=== PATIENT | female | born 1935 | race Asian ===

== ENCOUNTER → 2018-07-23 | Outpatient (CLI) | payer OTHER ==
[~2018-07-23] MED LIST: CALCIUM 500 +1 EAC5; IBUPROFEN 600600 M1 PO; PRILOSEC 20 MG20 MG PO; TOPROL XL25 MG PO
== END ==
LOC: RAD 08:22
DX: Z12.31 Encounter for screening mammogram for malignant neoplasm of breast (principal)

== ENCOUNTER → 2018-07-30 | Outpatient (CLI) | payer OTHER | LOC: RAD 00:32 | DX: N63.10 Unspecified lump in the right breast, unspecified quadrant (principal); R92.2 Inconclusive mammogram ==

== ENCOUNTER 2019-01-02 05:41 | Emergency (ER) | payer OTHER ==
[~2019-01-02] VITALS: Ht 149.9 cm; Wt 81.7 kg
[2019-01-02] MEDS ORDERED: TYLENOL PM EX-1 EACH PO (06:03)
[2019-01-02 06:18] LABS: BASOPHILS 1.3 % (0.0-2.0); HEMATOCRIT 43.7 % (37.0-47.0); HEMOGLOBIN 14.8 gm/dL (12.0-15.0); LYMPHOCYTES 49.3 % (24.0-44.0); MCH 29.7 pg (26.0-34.0); MCHC 33.9 g/dL (28.0-37.0); MCV 87.6 fL (80.0-100.0); MONOCYTES 8.2 % (1.0-8.0); PLATELET COUNT 173 thou/uL (150-400); POLYS 40.2 % (36.0-66.0); RBC 4.99 mil/uL (4.20-5.00); RDW 13.8 % (10.5-14.5); WBC 7.5 thou/uL (4.0-11.0)
[2019-01-02 06:24] LABS: ANION GAP 10 mmol/L (7-16); BUN 11 mg/dL (7-18); CALCIUM 9.5 mg/dL (8.5-10.1); CHLORIDE 107 mmol/L (98-107); CO2 26 mmol/L (21-32); GLUCOSE 120 mg/dL (74-106); POTASSIUM 4.1 mmol/L (3.5-5.1); SODIUM 143 mmol/L (136-145)
[2019-01-02 06:33] LABS: ALBUMIN 3.4 g/dL (3.4-5.0); DIRECT BILIRUBIN < 0.1 mg/dL (<0.1-0.3); LIPASE 167 U/L (73-393); SGOT 80 U/L (15-37); SGPT 83 U/L (30-65); TOTAL BILIRUBIN 0.4 mg/dL (<0.1-1.0); TOTAL PROTEIN 7.7 g/dL (6.4-8.2); TROPONIN-I <0.06 ng/mL (<0.06)
[2019-01-02 07:37] VITALS: BP 132/62
--- NOTE | 2019-01-02 08:47 | EKG ---
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 : 1935 Requested By: Taylor Orantes Order Number: [id number] MD: Kenny Lam Measurements Intervals [place] Rate: 67 P: 23 WY: 166 QRS: 30 QRSD: 92 T: 45 QT: 389 QTc: 411 Interpretive Statements Sinus rhythm Probable early repolarization Compared to ECG 11/07/2015 18:40:03 No significant change was found Electronically Signed On 01-02-2019 8:47:04 CDT by Kenny Lam [email or web address] ��������������������������������������������� <ELECTRONICALLY SIGNED> ���������������������������������������� By: Kenny Lam MD, [facility] ��������������������������������������������� 01/02/19 0847 [id number] [id number] Kenny Lam MD, FACC /EPI
== END 2019-01-02 07:38 | disposition home or self-care (01) ==
LOC: ER 05:41
PROVIDERS: Emergency Medicine
DX: R07.89 Other chest pain (principal); I10 Essential (primary) hypertension; K21.9 Gastro-esophageal reflux disease without esophagitis; Z90.710 Acquired absence of both cervix and uterus; Z87.891 Personal history of nicotine dependence

== ENCOUNTER → 2019-02-04 | Outpatient (CLI) | payer OTHER ==
[~2019-02-04] MED LIST changes: +TYLENOL PM EX-1 EACH PO
== END ==
LOC: RAD 01:58
DX: R92.8 Other abnormal and inconclusive findings on diagnostic imaging of breast (principal)

== ENCOUNTER → 2019-07-18 | Outpatient (CLI) | payer OTHER ==
[~2019-07-18] MED LIST changes: +NORCO 5-325 TA1 EAC1 PO; +VALACYCLOVIR1000 MG PO
== END ==
LOC: RAD 01:53
DX: Z12.31 Encounter for screening mammogram for malignant neoplasm of breast (principal)

== ENCOUNTER 2019-08-20 15:25 | Emergency (ER) | payer OTHER ==
[~2019-08-20] VITALS: Ht 149.9 cm; Wt 99.2 kg
[~2019-08-20 15:25] MED LIST changes: -NORCO 5-325 TA1 EAC1 PO; -VALACYCLOVIR1000 MG PO
[2019-08-20] MEDS ORDERED: VALACYCLOVIR1000 MG PO (15:42)
[2019-08-20] MEDS ORDERED: NORCO 5-325 TA1 EAC1 PO (16:00)
[2019-08-20 16:24] VITALS: BP 138/58
== END 2019-08-20 17:00 | disposition home or self-care (01) ==
LOC: ER 15:25
DX: B02.9 Zoster without complications (principal); I10 Essential (primary) hypertension; K21.9 Gastro-esophageal reflux disease without esophagitis; Z90.710 Acquired absence of both cervix and uterus; Z87.891 Personal history of nicotine dependence

== ENCOUNTER → 2020-02-05 | Outpatient (CLI) | payer OTHER ==
[~2020-02-05] MED LIST changes: +NORCO 5-325 TA1 EAC1 PO; +VALACYCLOVIR1000 MG PO
== END ==
LOC: RAD 14:40
DX: M54.41 Lumbago with sciatica, right side (principal)

== ENCOUNTER → 2020-02-16 | Outpatient (CLI) | payer OTHER | LOC: MRI 09:47 | DX: M51.16 Intervertebral disc disorders with radiculopathy, lumbar region (principal); M48.07 Spinal stenosis, lumbosacral region ==

== ENCOUNTER → 2020-03-24 | Outpatient (CLI) | payer OTHER | LOC: SJCVCIMAG 07:45 | PROVIDERS: ATTEND Internal Medicine | DX: I08.1 Rheumatic disorders of both mitral and tricuspid valves (principal); I11.9 Hypertensive heart disease without heart failure; R60.0 Localized edema; E78.5 Hyperlipidemia, unspecified; M19.90 Unspecified osteoarthritis, unspecified site; Z87.891 Personal history of nicotine dependence ==

== ENCOUNTER → 2020-03-31 | Outpatient (CLI) | payer OTHER ==
[~2020-03-31] VITALS: Ht 149.9 cm; Wt 85.3 kg
[2020-03-31 08:49] VITALS: BP 155/69
--- NOTE | 2020-03-31 09:10 | NUR ---
Pain Clinic Assessment: 1. 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 Height: 4 ft. 11 in. 149.9 cm. Weight: 188.0 lb. oz. 85.276 kg. Patient's BMI: 38.0 3. Vital Signs: BP: 155/69 Pulse: 60 Resp: 16 Temp: 02 Sat: 97 ECG Mon: 4. Pain Intensity: 4 5. Fall Risk: Dizziness: N Needs help standing or walking: N Fallen in the last 3 months: N Fall risk comments: 6. Patient on Blood Thinner: None 7. History of Hypertension: N 8. Opioid Therapy greater than 6 weeks: N Opiate Contract Signed: 9. Risk Assessment Tool Provided: 10. Functional Assessment Tool: 11. Recreational Drug Use: Never Drug Type: Tobacco Use: Never Smoker Tobacco Type: Amount or Packs/day: How Many Years: Alcohol Use: Yes Frequency: Daily Quant: 1 WINE OR BEER
== END | disposition home or self-care (01) ==
LOC: PAIN 06:34
PROVIDERS: ATTEND Anesthesiology Pain Medicine
DX: M54.16 Radiculopathy, lumbar region (principal); G89.29 Other chronic pain; I10 Essential (primary) hypertension; K21.9 Gastro-esophageal reflux disease without esophagitis; Z90.710 Acquired absence of both cervix and uterus; Z90.49 Acquired absence of other specified parts of digestive tract; Z98.890 Other specified postprocedural states; Z79.899 Other long term (current) drug therapy

== ENCOUNTER → 2020-04-02 | Outpatient (CLI) | payer OTHER | LOC: SJCVCIMAG 07:44 | PROVIDERS: ATTEND Internal Medicine | DX: I10 Essential (primary) hypertension (principal); E78.5 Hyperlipidemia, unspecified ==

== ENCOUNTER → 2020-08-02 | Outpatient (CLI) | payer OTHER | LOC: BC 09:36 | PROVIDERS: ATTEND Family Medicine | DX: Z12.31 Encounter for screening mammogram for malignant neoplasm of breast (principal) ==

== ENCOUNTER → 2021-05-25 | Outpatient (CLI) | payer OTHER | LOC: SJCVC 09:45 | PROVIDERS: ATTEND Internal Medicine | DX: R07.9 Chest pain, unspecified (principal); R60.0 Localized edema; I10 Essential (primary) hypertension; E78.5 Hyperlipidemia, unspecified; Z79.899 Other long term (current) drug therapy; Z87.891 Personal history of nicotine dependence; Z72.89 Other problems related to lifestyle ==

== ENCOUNTER → 2021-05-31 | Outpatient (CLI) | payer OTHER | LOC: SJCVCIMAG 07:07 | PROVIDERS: ATTEND Internal Medicine | DX: I25.9 Chronic ischemic heart disease, unspecified (principal); R06.00 Dyspnea, unspecified; R07.9 Chest pain, unspecified; I10 Essential (primary) hypertension; E78.5 Hyperlipidemia, unspecified; Z87.891 Personal history of nicotine dependence; Z79.899 Other long term (current) drug therapy ==

== ENCOUNTER → 2021-07-04 | Outpatient (CLI) | payer OTHER ==
[~2021-07-04] VITALS: Ht 147.3 cm; Wt 85.3 kg
[~2021-07-04] MED LIST changes: +CALCIUM GLUCONA50 MG PO; +COZAAR 25 MG TA25 MG PO; +NAPROSYN500 M1 PO; +VITAMIN D310 MC2 PO
[2021-07-04 10:06] VITALS: BP 143/58
[2021-07-04 11:13] LABS: ABSOLUTE NEUTROPHILS 2.3 thou/uL (1.4-8.2); BASOPHILS 2.3 % (0.0-2.0); EOSINOPHILS 1.8 % (0.0-3.0); HEMOGLOBIN 13.8 gm/dL (12.0-15.0); LYMPHOCYTES 46.4 % (24.0-44.0); MCHC 32.9 g/dL (28.0-37.0); MCV 88.2 fL (80.0-100.0); MONOCYTES 10.6 % (1.0-8.0); PLATELET COUNT 145 thou/uL (150-400); POLYS 38.9 % (36.0-66.0); RBC 4.76 mil/uL (4.20-5.00); RDW 13.1 % (10.5-14.5)
[2021-07-04 11:21] LABS: CALCIUM 9.1 mg/dL (8.5-10.1); CREATININE 0.9 mg/dL (0.6-1.0); POTASSIUM 4.2 mmol/L (3.5-5.1)
--- NOTE | 2021-07-11 12:46 | CATHLAB ---
[facility] [place] [address] INVASIVE PROCEDURE REPORT Name: CARLY TAI [id number] Admission: 07/04/21 Attend Phys: Fausto Mclean Discharge: Date of : 39 Report #: [id number] THIS REPORT FOR: cc: Teresa Mensah MD, Nora P. MD Lammoglia, Francisco J. MD ~ APPROVED REPORT Study performed: 07/04/2021 11:24:27 Patient Details Patient Status: Out-Patient Room #: The patient is a 86 year-old female Event Personnel Fausto Mclean Physical Sciences Professor, Rosario Palomo RN RN, Kendal Alvares RTR Scrub, Anupama Zapien RTR Monitor Procedures Performed Left Heart Cath w/or w/o Coronaries [id number] [facility] FFR [id number] FFR Art Access - R femoral artery* Hemostasis w/ Mynx 05219 Initial Mod Sed Same Phys/QHP Gr5y [id number] 84354 Mod Sed Same Phys/QHP Ea 325934, supervision conscious sedation Indication Positive stress test, Chest pain Procedure Narrative The Right Groin^ was infiltrated with 1% Lidocaine subcutaneous anesthesia. A PINNACLE 4FR Sheath #[id number] sheath was inserted into the RFA^. Coronary angiography was performed using coronary diagnostic catheters. The right coronary system was accessed and visualized with a JR4 catheter. The left coronary system was accessed and visualized with a JL4 catheter. The left ventricle was accessed and visualized with a PIGTAIL catheter. Left ventricular/Aortic Valve gradient assessed via catheter pullback. Closure device was deployed with a Fr MYNXGRIP 6/7F #[id number]. The patient tolerated the procedure well and there were no complications associated with the procedure. There was no hematoma. The pre-FFR measurement was 1.00. The post FFR measurement was 0.95. Intraoperative Conscious Sedation Sedation start time: 11:35 Case end Time: 12:44 [facility] [address] [place] [address] INVASIVE PROCEDURE REPORT Name: ABIDACARLY Room #: [facility]#: [id number] Admission: 07/04/21 Attend Phys: Fausto Leija Discharge: Date of : 39 Report #: [id number] Versed 2 mg Fluoro Time: 5.15 minutes Dose: DAP 3880.50 cGycm2 585 mGy Contrast Type and Amount: Omnipaque 105 ml Coronary Angiography The patient's coronary anatomy is right dominant. Diagnostic Cath Left Main Moderate caliber vessel normal origin. Bifurcates left into descending left circumflex free of high-grade disease LAD Moderate caliber type II vessel coursing the interventricular sulcus. After the origin of the first diagonal branch is an eccentric lesion that appears to be 50 to 60%. The vessel and continues on with luminal irregularities and terminating is a bifurcating vessel at the apex of left ventricle. Only luminal irregularities are noted Diagonal 1 Small caliber vessel without high-grade lesions Circumflex Small caliber vessel without high-grade lesions give us an early marginal versus a ramus branch. And continues on gives rise to a second marginal branch which is small in caliber coursing on the lateral aspect of the heart. The circumflex continues in AV groove posteriorly terminating as a small insignificant sized vessel OM1 Diminutive size vessel which may be a ramus intermedius OM2 Small caliber vessel with luminal irregularities no high-grade lesions are present OM3 Insignificant caliber vessel Right Coronary Large-caliber vessel of normal origin which has a initial proximal tapering. This is reviewed in numerous views and appears to have focal spasming occurring with the catheter in place. No ECG or symptoms identified. The RCA then continues on to the acute margin where a small caliber RV marginal branch arises free of high-grade disease. The RCA then continues to the crux of the heart gives rise to moderate caliber posterior descending artery and then terminates posterior wall vessel no high-grade lesions are noted beyond the initial mild proximal lesion with superimposed spasm R PDA Moderate caliber vessel without high-grade lesions noted Left Ventriculography Left Ventriculography was not performed. [address] [address] INVASIVE PROCEDURE REPORT Name: CARLY TAI Room #: [facility]#: [id number] Admission: 07/04/21 Attend Phys: Fausto Leija Discharge: Date of : 39 Report #: [id number] IVUS Fractional Flow [place] was performed on the proximal left anterior descending artery segment vessel. A JL4 Guide Catheter was used to engage the LAD ostium. Hemodynamics The aortic pressure is 148/52 mmHg with a mean of 97 mmHg. The left ventricular pressure is 153/10 mmHg with a mean of mmHg. The left ventricular end diastolic pressure is 28 mmHg. Pullback from the left ventricle to the aorta revealed no gradient across the aortic valve. PCI Technique Lesion The lesion stenosis prior to intervention was proximal left anterior descending artery segment% with NATACHA JL4 flow. A LAD Guide Catheter was used to engage the ostium. Conclusion 1. Coronary disease moderate single-vessel 2. Normal hemodynamics 3. Proximal mid LAD eccentric lesion not significant with an IFR value of 0.95 (not significant 4. Evidence of proximal RCA vasospasm Recommendations Cardiac Risk Reduction Program Medical Therapy <ELECTRONICALLY SIGNED> By: Fausto Mclean MD 07/11/21 1245 1245 1245 Fausto Mclean MD /INF
== END | disposition home or self-care (01) ==
LOC: CATH 09:16
PROVIDERS: ATTEND Internal Medicine
DX: R94.39 Abnormal result of other cardiovascular function study (principal); I25.10 Atherosclerotic heart disease of native coronary artery without angina pectoris; R07.9 Chest pain, unspecified; I10 Essential (primary) hypertension; M19.90 Unspecified osteoarthritis, unspecified site; K21.9 Gastro-esophageal reflux disease without esophagitis; Z98.890 Other specified postprocedural states; Z79.899 Other long term (current) drug therapy; Z90.710 Acquired absence of both cervix and uterus

== ENCOUNTER → 2021-07-25 | Outpatient (CLI) | payer OTHER | LOC: BC 08:10 | PROVIDERS: ATTEND Family Medicine | DX: Z12.31 Encounter for screening mammogram for malignant neoplasm of breast (principal) ==